=== PATIENT | male | born 1950 | race Caucasian/White ===

== ENCOUNTER 2016-03-24 13:41 | Emergency (ER) | payer BC ==
[~2016-03-24] VITALS: Ht 167.6 cm; Wt 75.0 kg
[~2016-03-24 13:41] MED LIST: ERYT.5%O LEFT EYE; TYLE3 PO; Z.0.NO CURRENT MEDS; ZOFR4TAB3 SL
[2016-03-24 13:46] VITALS: BP 184/115; PULSE 83; RESP 16; O2SAT 96
[2016-03-24 13:56] VITALS: BP 219/100; PULSE 53; RESP 18; O2SAT 99
--- NOTE | 2016-03-24 14:11 | PD ---
HPI Chief Complaint: Chest Pain Time Seen by Provider: 14:07 Travel History International Travel<30 days: No Contact w/Intl Traveler<30days: No Traveled to known affect area: No History of Present Illness HPI 66-year-old male presents to the emergency department for evaluation of left flank pain that started at 11:30 while working at [employer]. He states he was walking when the pain hit him. He denies any history of back pain. No fevers or chills. Denies any chest pain or shortness of breath. Patient reports no chronic medical problems and taking no prescribed medications. He states he has whitecoat syndrome and his blood pressure is always elevated when seeing the doctor. Patient denies any abdominal surgeries or previous history of abdominal problems. He denies a history of nephrolithiasis. Patient states he has vomited several times since 11:30. PFSH Past Surgical History Surgical History: No Previous Surgery Social History Alcohol Use: No Tobacco Use: No Substance Use: No Allergies-Medications (Allergen,Severity, Reaction): Coded Allergies: Medrol (Verified Allergy, Severe, INCREASED HEART RATE, 03/24/16) Reported Meds & Prescriptions Reported Meds & Active Scripts Active Ondansetron Odt 4 Mg Tab 4 Mg SL Q6HR PRN Review of Systems Except as stated in HPI: all other systems reviewed are Neg Physical Exam Narrative GENERAL: Well-developed well-nourished male patient, afebrile. SKIN: Warm and dry. HEAD: Normocephalic. Atraumatic. EYES: No scleral icterus. No injection or drainage. NECK: Supple, trachea midline. No JVD or lymphadenopathy. CARDIOVASCULAR: Regular rate and rhythm without murmurs, gallops, or rubs. RESPIRATORY: Breath sounds equal bilaterally. No accessory muscle use. Lungs sounds clear to auscultation. GASTROINTESTINAL: Abdomen soft, non-tender, nondistended. MUSCULOSKELETAL: No cyanosis, or edema. BACK: Nontender without obvious deformity. No CVA tenderness. No CVA tenderness to left flank, but patient states this is where his pain is and points to this location. Data Data Last Documented VS Vital Signs Date Time Temp Pulse Resp B/P Pulse Ox O2 Delivery O2 Flow Rate FiO2 03/24/16 14:24 96 03/24/16 13:56 53 18 219/100 Orders Electrocardiogram (03/24/16 ) Morphine Inj (Morphine Inj) (03/24/16 14:15) Ondansetron Inj (Zofran Inj) (03/24/16 14:15) Complete Blood Count With Diff (03/24/16 14:06) Comprehensive Metabolic Panel (03/24/16 14:06) Lipase (03/24/16 14:06) Urinalysis - C+S If Indicated (03/24/16 14:06) Ct Abd/Pel W/O Iv Contrast (03/24/16 14:06) Iv Access Insert/Monitor (03/24/16 14:06) Ecg Monitoring (03/24/16 14:06) Oximetry (03/24/16 14:06) Sodium Chloride 0.9% Flush (Ns Flush) (03/24/16 14:15) Ct Abd/Pel W Iv Contrast(Rout) (03/24/16 ) Chest, Single Ap (03/24/16 ) Creatine Kinase (Cpk) (03/24/16 15:31) Troponin I (03/24/16 15:31) Morphine Inj (Morphine Inj) (03/24/16 15:45) Iohexol 350 Inj (Omnipaque 350 Inj) (03/24/16 15:57) Ketorolac Inj (Toradol Inj) (03/24/16 17:00) Labs Laboratory Tests Test 03/24/16 03/24/16 14:17 16:25 White Blood Count 17.1 TH/MM3 Red Blood Count 5.27 MIL/MM3 Hemoglobin 15.3 GM/DL Hematocrit 45.3 % Mean Corpuscular Volume 86.0 FL Mean Corpuscular Hemoglobin 29.0 PG Mean Corpuscular Hemoglobin 33.7 % Concent Red Cell Distribution Width 13.8 % Platelet Count 279 TH/MM3 Mean Platelet Volume 8.8 FL Neutrophils (%) (Auto) 89.6 % Lymphocytes (%) (Auto) 6.8 % Monocytes (%) (Auto) 3.5 % Eosinophils (%) (Auto) 0.0 % Basophils (%) (Auto) 0.1 % Neutrophils # (Auto) 15.3 TH/MM3 Lymphocytes # (Auto) 1.2 TH/MM3 Monocytes # (Auto) 0.6 TH/MM3 Eosinophils # (Auto) 0.0 TH/MM3 Basophils # (Auto) 0.0 TH/MM3 CBC Comment DIFF FINAL Differential Comment Sodium Level 139 MEQ/L Potassium Level 4.0 MEQ/L Chloride Level 103 MEQ/L Carbon Dioxide Level 28.4 MEQ/L Anion Gap 8 MEQ/L Blood Urea Nitrogen 14 MG/DL Creatinine 1.10 MG/DL Estimat Glomerular Filtration 67 ML/MIN Rate Random Glucose 116 MG/DL Calcium Level 8.9 MG/DL Total Bilirubin 0.6 MG/DL Aspartate Amino Transf 27 U/L (AST/SGOT) Alanine Aminotransferase 34 U/L (ALT/SGPT) Alkaline Phosphatase 93 U/L Total Creatine Kinase 228 U/L Troponin I LESS THAN 0.02 NG/ML Total Protein 8.0 GM/DL Albumin 4.2 GM/DL Lipase 122 U/L Urine Color LIGHT-YELLOW Urine Turbidity CLEAR Urine pH 8.0 Urine Specific [place] 1.018 Urine Protein NEG mg/dL Urine Glucose (UA) NEG mg/dL Urine Ketones 10 mg/dL Urine Occult Blood SMALL Urine Nitrite NEG Urine Bilirubin NEG Urine Urobilinogen LESS THAN 2.0 MG/DL Urine Leukocyte Esterase NEG Urine RBC 7 /hpf Urine WBC 1 /hpf Microscopic Urinalysis Comment CULT NOT INDICATED MDM Medical Decision Making Medical Screen Exam Complete: Yes Emergency Medical Condition: Yes Medical Record Reviewed: Yes Interpretation(s) Last Impressions Abdomen/Pelvis CT 03/24/16 1406 Signed Impressions: Service Date/Time: March 14:34 - CONCLUSION: 1. No acute obstructive uropathy. 2. Heterogeneous liver which is nonspecific. Contrast-enhanced CT or MRI would be helpful for further evaluation of the heterogeneous appearing liver to differentiate between scattered fatty infiltration or underlying solid lesions. 3. Scattered hepatic cysts and bilateral renal cysts. 4. Cardiomegaly and coronary artery calcifications. 5. Degenerative changes and scoliosis of the lumbar spine. 6. Prominent left gonadal vein. Raulito Rogers MD Chest X-Ray 03/24/16 0000 Signed Impressions: Service Date/Time: March 16:09 - CONCLUSION: No acute disease. Devon Negro MD CT abdomen/pelvis with IV contrast - CONCLUSION: 1. Mild scattered areas of fatty infiltration within the liver. 2. Multiple hepatic and bilateral renal cysts. 3. Cardiomegaly. 4. No acute obstructive uropathy. 5. 10 mm nodule along the superior aspect of the spleen which is nonspecific but probably benign. Differential Diagnosis nephrolithiasis vs. diverticulitis vs. muscle spasm Narrative Course 66-year-old male presents to the emergency department for evaluation of left flank pain and vomiting that started 11:30 this morning. EKG shows sinus bradycardia, heart rate 52, no acute ST changes. CBC, CMP, lipase, UA, CT abdomen/pelvis without contrast is ordered and pending. Patient is given morphine 4 mg IV and Zofran 4 mg IV. CBC shows leukocytosis 17.1. CMP shows no acute abnormality. Lipase is 122. UA shows small occult blood, 7 RBCs, no evidence of acute infection. CT abdomen /pelvis without contrast shows heterogeneous liver which is nonspecific. Contrast-enhanced CT or MRI would be helpful for further evaluation of the heterogeneous appearing liver to differentiate between scattered fatty infiltration or underlying solid lesions. CT abdomen/pelvis with contrast is ordered and shows mild scattered areas of fatty infiltration within the liver; multiple hepatic and bilateral renal cysts; cardiomegaly; no acute obstructive uropathy; 10 mm nodule along the superior aspect of the spleen which is nonspecific but probably benign. . Upon re-evaluation, patient now points a little higher on his back, upper back where pain is as well as mild epigastric and bilateral upper quadrant pain. Chest x-ray is ordered and pending. CK and troponin are ordered. Chest x-ray shows no acute disease. CK is 228. Troponin is less than 0.02. I discussed the case with my attending physician, Dr. Ramirez, who is aware of symptoms and physical exam findings. Symptoms are most consistent with nephrolithiasis that is not showing up on CT. Patient will be discharged with a prescription for Lortab for pain and Zofran for nausea. He is to follow up with his primary care physician and urologist. He is agreeable to this plan. Diagnosis Primary Impression: Flank pain, acute Referrals: Primary Care Physician call for appointment Urologist call for appointment Patient Instructions: Flank Pain (ED), General Instructions Additional Instructions: Follow up with your primary care physician. Take Lortab as directed as needed for pain. Caution this can make you drowsy so do not drive after taking. Take Zofran as directed as needed for nausea/vomiting. Return to the emergency department for any acute, worsening of symptoms. Med/Other Pt SpecificInfo: Prescription(s) given Scripts Hydrocodone-Acetaminophen (Lortab)5-325 Mg Tab1 Tab PO Q6H PRN (PAIN) #20 TAB Ref 0 Prov:Levy Ramirez MD 03/24/16 Ondansetron Odt 4 Mg Tab4 Mg SL Q6HR PRN (Nausea/Vomiting) #16 TAB Ref 0 Prov:Bailey Robertson 03/24/16 Disposition: 01 DISCHARGE HOME Condition: Stable Bailey Robertson Mar 24, 2016 14:11
[2016-03-24] MEDS ORDERED: MORPHINE SULFATE 4 MG/ML INJ IV ONE ×2 (14:15→15:45)
[2016-03-24] MEDS ORDERED: ONDANSETRON HCL 4 MG/2 ML VIAL IVP ONE (14:15)
[2016-03-24] MEDS ORDERED: SODIUM CHLORIDE 0.9% FLUSH 5 ML FLUSH IVF PRN (14:15)
[2016-03-24 14:24] VITALS: O2SAT 96
[2016-03-24 14:30] LABS: AUTOMATED NEUTROPHIL # 15.3 TH/MM3 (1.8-7.7); BASOPHIL % 0.1 % (0.0-2.0); HEMATOCRIT 45.3 % (39.0-51.0); HEMO FLAGS DIFF FINAL; LYMPH % 6.8 % (9.0-44.0); LYMPHOCYTE # 1.2 TH/MM3 (1.0-4.8); MEAN CORPUSCULAR HGB CONC 33.7 % (32.0-36.0); MONO % 3.5 % (0.0-8.0); NEUT % 89.6 % (16.0-70.0); PLATELET COUNT 279 TH/MM3 (150-450); RED BLOOD COUNT 5.27 MIL/MM3 (4.50-5.90); RED CELL DISTRIBUTION WIDTH 13.8 % (11.6-17.2); WHITE BLOOD COUNT 17.1 TH/MM3 (4.0-11.0)
[2016-03-24 14:49] LABS: ALKALINE PHOSPHATASE 93 U/L (45-117); TOTAL BILIRUBIN ADULT 0.6 MG/DL (0.2-1.0)
[2016-03-24 14:53] LABS: ALT (GPT) 34 U/L (12-78); ANION GAP 8 MEQ/L (5-15); AST (GOT) 27 U/L (15-37); BICARBONATE 28.4 MEQ/L (21.0-32.0); BLOOD UREA NITROGEN 14 MG/DL (7-18); CHLORIDE 103 MEQ/L (98-107); GLOMERULAR FILTRATION RATE 67 ML/MIN (>89); SODIUM (NA) 139 MEQ/L (136-145)
--- NOTE | 2016-03-24 15:21 | RADRPT ---
EXAM DATE/TIME: 03/24/2016 14:34 [facility] COMPARISON: No previous studies available for comparison. INDICATIONS : Left flank pain, nausea and vomiting. ORAL CONTRAST: No oral contrast ingested. RADIATION DOSE: 15.03 CTDIvol (mGy) MEDICAL HISTORY : None SURGICAL HISTORY : None. ENCOUNTER: Initial ACUITY: 1 day PAIN SCALE: 6/10 LOCATION: Left flank TECHNIQUE: Volumetric scanning of the abdomen and pelvis was performed. Using automated exposure control and ad justment of the mA and/or kV according to patient size, radiation dose was kept as low as reasonably achievable to obtain optimal diagnostic quality images. FINDINGS: LOWER LUNGS: Cardiomegaly and coronary artery calcifications are noted. LIVER: The liver is somewhat heterogeneous in attenuation which is nonspecific. Contrast-enhanced CT or MRI would be helpful for further evaluation of the heterogeneous appearing liver to differentiate between scattered fatty infiltration or underlying solid lesions. There are scattered low density lesions wi thin the liver consistent with hepatic cysts. The largest cyst is noted anteriorly and measures 6.2 c m. No biliary ductal dilatation is noted. The gallbladder is unremarkable. SPLEEN: Normal size without lesion. PANCREAS: Within normal limits. KIDNEYS: Normal in size and shape. Small bilateral renal cysts are noted. There is no mass, stone, or hydrone phrosis. ADRENAL GLANDS: Within normal limits. VASCULAR: There is no aortic aneurysm. There is a prominent left gonadal vein. BOWEL/MESENTERY: The stomach, small bowel, and colon demonstrate no acute abnormality. There is no free intraperitone al air or fluid. ABDOMINAL WALL: Within normal limits. RETROPERITONEUM: There is no lymphadenopathy. BLADDER: No wall thickening or mass. REPRODUCTIVE: Within normal limits. INGUINAL: There is no lymphadenopathy or hernia. MUSCULOSKELETAL: Degenerative changes of scoliosis of the thoracolumbar spine are noted. CONCLUSION: 1. No acute obstructive uropathy. 2. Heterogeneous liver which is nonspecific. Contrast-enhanced CT or MRI would be helpful for further evaluation of the heterogeneous appearing liver to differentiate between scattered fatty infiltratio n or underlying solid lesions. 3. Scattered hepatic cysts and bilateral renal cysts. 4. Cardiomegaly and coronary artery calcifications. 5. Degenerative changes and scoliosis of the lumbar spine. 6. Prominent left gonadal vein. Raulito Rogers MD on March 24, 2016 at 15:12 Board Certified Radiologist. This report was verified electronically.
[2016-03-24] MEDS ORDERED: IOHEXOL 350 MG/ML 10 ML VIAL (for RAD DIAG) IV ONE (15:57)
--- NOTE | 2016-03-24 16:23 | RADRPT ---
EXAM DATE/TIME: 03/24/2016 16:09 [facility] COMPARISON: No previous studies available for comparison. INDICATIONS : Chest pain. MEDICAL HISTORY : None. SURGICAL HISTORY : None. ENCOUNTER: Initial ACUITY: 1 day PAIN SCORE: 5/10 LOCATION: Bilateral chest FINDINGS: A single view of the chest demonstrates the lungs to be symmetrically aerated without evidence of mas s, infiltrate or effusion. The cardiomediastinal contours are unremarkable. Osseous structures are intact. There are overlying electrocardiogram leads. CONCLUSION: No acute disease. Devon Negro MD on March 24, 2016 at 16:21 Board Certified Radiologist. This report was verified electronically.
--- NOTE | 2016-03-24 16:29 | RADRPT ---
EXAM DATE/TIME: 03/24/2016 15:50 [facility] COMPARISON: CT ABDOMEN & PELVIS W/O CONTRAST, March 24, 2016, 14:34. INDICATIONS : Abnormal abdominal/pelvis CT. Evaluate liver. IV CONTRAST: 92 cc Omnipaque 350 (iohexol) IV ORAL CONTRAST: No oral contrast ingested. RADIATION DOSE: 9.96 CTDIvol (mGy) MEDICAL HISTORY : None SURGICAL HISTORY : None. ENCOUNTER: Initial ACUITY: 1 day PAIN SCALE: 3/10 LOCATION: Left flank TECHNIQUE: Volumetric scanning of the abdomen and pelvis was performed. Using automated exposure control and ad justment of the mA and/or kV according to patient size, radiation dose was kept as low as reasonably achievable to obtain optimal diagnostic quality images. FINDINGS: The previously questioned heterogenous liver is confirmed as scattered areas of mild fatty infiltrati on rather than underlying solid mass lesions. Multiple simple hepatic cysts are also noted. No bili channing ductal dilatation is noted. The gallbladder is unremarkable. There is a tiny nodule arising from the superior aspect of the spleen measuring 10 mm which is nonspecific but likely benign. Scattered renal cysts are noted. There is no acute obstructive uropathy. The pancreas is normal. The adrena ls glands are normal bilaterally. A prominent left gonadal vein is noted. The urinary bladder is un remarkable. The prostate gland is normal. Cardiomegaly is again noted. Degenerative changes and sco liosis of the lumbar spine are noted. The urinary bladder is unremarkable. No ascites is noted. CONCLUSION: 1. Mild scattered areas of fatty infiltration within the liver. 2. Multiple hepatic and bilateral renal cysts. 3. Cardiomegaly. 4. No acute obstructive uropathy. 5. 10 mm nodule along the superior aspect of the spleen which is nonspecific but probably benign. Raulito Rogers MD on March 24, 2016 at 16:16 Board Certified Radiologist. This report was verified electronically.
[2016-03-24 16:38] LABS: BLOOD, URINE SMALL (NEG); COMMENT (UR) CULT NOT INDICATED; CULTURE IF INDICATED CULT NOT INDICATED; GLUCOSE,URINE NEG (NEG); KETONE, URINE 10 mg/dL (NEG); NITRITE,URINE NEG (NEG); URINE COLOR LIGHT-YELLOW (YELLW/STRAW)
[2016-03-24 16:44] LABS: CREATINE KINASE 228 U/L (39-308)
[2016-03-24 17:00] VITALS: BP 178/85; PULSE 66; RESP 18; O2SAT 98
[2016-03-24] MEDS ORDERED: KETOROLAC TROMETHAMINE 30 MG/ML (IVP) VIAL IV PUSH ONE (17:00)
[2016-03-24] MEDS ORDERED: ONDA4TAB7 SL (17:00)
[2016-03-24] MEDS ORDERED: HYDR-3533 PO (17:02)
--- NOTE | 2016-03-26 08:59 | EKG ---
Date Performed: 03/24/2016 Time Performed: 14:03:22 PTAGE: 66 years EKG: SINUS BRADYCARDIA LVH BY VOLTAGE ABNORMAL ECG NO PREVIOUS TRACING DOCTOR: Johnny Krause Interpretating Date/Time 03/26/2016 08:58:36
== END 2016-03-24 18:19 | disposition home or self-care (01) ==
LOC: NEPC 13:41
DX: R10.9 Unspecified abdominal pain (principal); R00.1 Bradycardia, unspecified
CPT/HCPCS: 71010; 74176; 74177; 80053; 81001; 82550; 83690; 84484; 85025; 93005; 96374; 96375; 96376; 99284; J1885; J2270; J2405; Q9967

== ENCOUNTER 2016-03-27 10:37 | Emergency (ER) | payer BC ==
[~2016-03-27] VITALS: Ht 162.6 cm; Wt 72.9 kg
[~2016-03-27 10:37] MED LIST changes: -ERYT.5%O LEFT EYE; +HYDR-3533 PO; +ONDA4TAB7 SL; -TYLE3 PO; -Z.0.NO CURRENT MEDS; -ZOFR4TAB3 SL
[2016-03-27 10:44] VITALS: BP 162/89; PULSE 104; RESP 16; TEMP 99.1; O2SAT 96
--- NOTE | 2016-03-27 11:41 | PD ---
HPI Chief Complaint: Abdominal Pain Time Seen by Provider: 11:18 Travel History International Travel<30 days: No Contact w/Intl Traveler<30days: No Traveled to known affect area: No History of Present Illness HPI 66yo M with no significant PMH presents to the ED with c/o abdominal pain for 2 days. Pt was seen at [place] 3 days ago for left flank pain and epigastric abdominal pain. Pt had negative work up with negative CT abd/pelvis. States that his back pain has resolved but now has an achy feeling in his abdomen that is generalized. States the achy pain is worst when he stands up and not there when he is lying down. Denies any fever, n/v, chest pain, sob, urinary complaint. Pt did take a laxative this morning and had bowel movement. PFSH Past Medical History GERD: Yes Past Surgical History Surgical History: No Previous Surgery Social History Alcohol Use: No Tobacco Use: No Substance Use: No Allergies-Medications (Allergen,Severity, Reaction): Coded Allergies: Medrol (Verified Allergy, Severe, INCREASED HEART RATE, 03/27/16) Reported Meds & Prescriptions Reported Meds & Active Scripts Active Lortab (Hydrocodone-Acetaminophen) 5-325 Mg Tab 1 Tab PO Q6H PRN Review of Systems Except as stated in HPI: all other systems reviewed are Neg Physical Exam Narrative GENERAL: 66yo M not in distress. SKIN: Warm and dry. HEAD: Atraumatic. Normocephalic. EYES: Pupils equal and round. No scleral icterus. No injection or drainage. ENT: No nasal bleeding or discharge. Mucous membranes pink and moist. NECK: Trachea midline. No JVD. CARDIOVASCULAR: Regular rate and rhythm. No murmur appreciated. RESPIRATORY: No accessory muscle use. Clear to auscultation. Breath sounds equal bilaterally. GASTROINTESTINAL: Abdomen soft, non-tender, nondistended. No rebound tenderness or guarding. BACK: No CVA tenderness bilaterally. : No penile or testicular ttp. No inguinal hernia palpated bilaterally. MUSCULOSKELETAL: No obvious deformities. No clubbing. No cyanosis. No edema. NEUROLOGICAL: Awake and alert. No obvious cranial nerve deficits. Motor grossly within normal limits. Normal speech. PSYCHIATRIC: Appropriate mood and affect; insight and judgment normal. Data Data Last Documented VS Vital Signs Date Time Temp Pulse Resp B/P Pulse Ox O2 Delivery O2 Flow Rate FiO2 03/27/16 13:59 88 18 123/67 98 03/27/16 10:44 99.1 Orders Complete Blood Count With Diff (03/27/16 11:32) Basic Metabolic Panel (Bmp) (03/27/16 11:32) Hepatic Functional Panel (03/27/16 11:32) Lipase (03/27/16 11:32) Urinalysis - C+S If Indicated (03/27/16 11:32) Abdomen, Upright Only (03/27/16 11:41) Al-Mag Hy-Si 40-40-4 Mg/Ml Liq (Mag-Al P (03/27/16 11:45) Lidocaine 2% Viscous (Xylocaine 2% Visco (03/27/16 11:45) Potassium Chloride (Kcl) (03/27/16 13:00) Ed Poc Ultrasound (03/27/16 ) Ed Poc Ultrasound (03/27/16 ) Labs Laboratory Tests Test 03/27/16 03/27/16 11:40 11:45 Urine Collection Type CLEAN CATCH Urine Color YELLOW Urine Turbidity CLEAR Urine pH 5.5 Urine Specific [place] 1.025 Urine Protein 100 mg/dL Urine Glucose (UA) NEG mg/dL Urine Ketones 15 mg/dL Urine Occult Blood LARGE Urine Nitrite NEG Urine Bilirubin NEG Urine Leukocyte Esterase NEG Urine RBC 20-24 /hpf Urine WBC 0-2 /hpf Urine Squamous Epithelial 0-5 /hpf Cells Microscopic Urinalysis Comment CULT NOT INDICATED Urine Collection Time 11:40 White Blood Count 12.9 TH/MM3 Red Blood Count 5.32 MIL/MM3 Hemoglobin 15.6 GM/DL Hematocrit 46.1 % Mean Corpuscular Volume 86.7 FL Mean Corpuscular Hemoglobin 29.3 PG Mean Corpuscular Hemoglobin 33.8 % Concent Red Cell Distribution Width 13.0 % Platelet Count 264 TH/MM3 Mean Platelet Volume 8.7 FL Neutrophils (%) (Auto) 81.9 % Lymphocytes (%) (Auto) 8.6 % Monocytes (%) (Auto) 6.5 % Eosinophils (%) (Auto) 0.2 % Basophils (%) (Auto) 2.8 % Neutrophils # (Auto) 10.6 TH/MM3 Lymphocytes # (Auto) 1.1 TH/MM3 Monocytes # (Auto) 0.8 TH/MM3 Eosinophils # (Auto) 0.0 TH/MM3 Basophils # (Auto) 0.4 TH/MM3 CBC Comment DIFF FINAL Differential Comment Sodium Level 141 MEQ/L Potassium Level 3.0 MEQ/L Chloride Level 101 MEQ/L Carbon Dioxide Level 30.2 MEQ/L Anion Gap 10 MEQ/L Blood Urea Nitrogen 19 MG/DL Creatinine 1.40 MG/DL Estimat Glomerular Filtration 50 ML/MIN Rate Random Glucose 131 MG/DL Calcium Level 8.9 MG/DL Total Bilirubin 1.6 MG/DL Direct Bilirubin 0.7 MG/DL Indirect Bilirubin 0.9 MG/DL Aspartate Amino Transf 47 U/L (AST/SGOT) Alanine Aminotransferase 65 U/L (ALT/SGPT) Alkaline Phosphatase 110 U/L Total Protein 7.6 GM/DL Albumin 3.3 GM/DL Lipase 159 U/L [facility] Medical Decision Making Medical Screen Exam Complete: Yes Emergency Medical Condition: Yes Interpretation(s) Last Impressions Abdomen X-Ray 03/27/16 1141 Signed Impressions: Service Date/Time: Sunday, March 27, 2016 12:22 - CONCLUSION: Benign Upright abdomen. Dawson Garcia MD Laboratory Tests Test 03/27/16 03/27/16 11:40 11:45 Urine Collection Type CLEAN CATCH Urine Color YELLOW (YELLW/STRAW) Urine Turbidity CLEAR (CLEAR) Urine pH 5.5 (5.0-8.5) Urine Specific [place] 1.025 (1.002-1.035) Urine Protein 100 mg/dL (NEG-TRACE) Urine Glucose (UA) NEG mg/dL (NEG) Urine Ketones 15 mg/dL (NEG) Urine Occult Blood LARGE (NEG) Urine Nitrite NEG (NEG) Urine Bilirubin NEG (NEG) Urine Leukocyte Esterase NEG (NEG) Urine RBC 20-24 /hpf (0-3) Urine WBC 0-2 /hpf (0-5) Urine Squamous Epithelial 0-5 /hpf (0-5) Cells Microscopic Urinalysis Comment CULT NOT INDICATED Urine Collection Time 11:40 White Blood Count 12.9 TH/MM3 (4.0-11.0) Red Blood Count 5.32 MIL/MM3 (4.50-5.90) Hemoglobin 15.6 GM/DL (13.0-17.0) Hematocrit 46.1 % (39.0-51.0) Mean Corpuscular Volume 86.7 FL (80.0-100.0) Mean Corpuscular Hemoglobin 29.3 PG (27.0-34.0) Mean Corpuscular Hemoglobin 33.8 % Concent (32.0-36.0) Red Cell Distribution Width 13.0 % (11.6-17.2) Platelet Count 264 TH/MM3 (150-450) Mean Platelet Volume 8.7 FL (7.0-11.0) Neutrophils (%) (Auto) 81.9 % (16.0-70.0) Lymphocytes (%) (Auto) 8.6 % (9.0-44.0) Monocytes (%) (Auto) 6.5 % (0.0-8.0) Eosinophils (%) (Auto) 0.2 % (0.0-4.0) Basophils (%) (Auto) 2.8 % (0.0-2.0) Neutrophils # (Auto) 10.6 TH/MM3 (1.8-7.7) Lymphocytes # (Auto) 1.1 TH/MM3 (1.0-4.8) Monocytes # (Auto) 0.8 TH/MM3 (0-0.9) Eosinophils # (Auto) 0.0 TH/MM3 (0-0.4) Basophils # (Auto) 0.4 TH/MM3 (0-0.2) CBC Comment DIFF FINAL Differential Comment Sodium Level 141 MEQ/L (136-145) Potassium Level 3.0 MEQ/L (3.5-5.1) Chloride Level 101 MEQ/L (98-107) Carbon Dioxide Level 30.2 MEQ/L (21.0-32.0) Anion Gap 10 MEQ/L (5-15) Blood Urea Nitrogen 19 MG/DL (7-18) Creatinine 1.40 MG/DL (0.60-1.30) Estimat Glomerular Filtration 50 ML/MIN (>89) Rate Random Glucose 131 MG/DL (74-106) Calcium Level 8.9 MG/DL (8.5-10.1) Total Bilirubin 1.6 MG/DL (0.2-1.0) Direct Bilirubin 0.7 MG/DL (0.0-0.2) Indirect Bilirubin 0.9 MG/DL (0.0-0.8) Aspartate Amino Transf 47 U/L (15-37) (AST/SGOT) Alanine Aminotransferase 65 U/L (12-78) (ALT/SGPT) Alkaline Phosphatase 110 U/L (45-117) Total Protein 7.6 GM/DL (6.4-8.2) Albumin 3.3 GM/DL (3.4-5.0) Lipase 159 U/L (73-393) Differential Diagnosis Constipation vs. UTI vs. musculoskeletal pain Narrative Course 66yo M with c/o abdominal pain. However, on my exam, pt did not have any tenderness to palpation. Labs reviewed, mild leukocytosis at 12.9 which is decreased from 17.1 on 03/24/16. K is low at 3.0, replaced orally with 60mEq KCl PO. Pt has not vomited for 3 days and stats he has not been eating well but denies any nausea or vomiting. BUN/creatinine mildly elevated. Pt is tolerating PO. LFT and bilirubin is mildly elevated. However, pt has no RUQ tenderness to palpation. I did bedside US and gallbladder wall is not thickened. No gallstones and no sonographic tomas sign. Will have pt follow up with PMD regarding this. UA showed large blood. No leukocyte. Xray abdomen is negative for any free intraperitoneal gas. There is stool in colon. Pt given GI cocktail which improved pain. Return precautions given. Procedures Procedure Narrative Emergency department right upper quadrant ultrasound was performed with patient consent. Curvilinear probe was used in the transverse and sagittal views within the right upper quadrant revealing gallbladder without obvious wall thickening, cholecystic fluid, or cholelithiasis. Emergency departmetn urinary tract ultrasound was performed with patient consent. Curvilinear probe was used in the transverse and sagittal views in the bilateral flank and suprapubic region without evidence of hydronephrosis and urinary retention. Diagnosis Primary Impression: Abdominal pain Qualified Code: R10.9 - Abdominal pain, unspecified location Patient Instructions: General Instructions Departure Forms: Tests/Procedures Additional Instructions: Please follow up with your PMD in 3-7 days. Return to the ED if symptoms worsen. Med/Other Pt SpecificInfo: Prescription(s) given, No Change to Meds Disposition: 01 DISCHARGE HOME Condition: Stable Ester Mcgarry Mar 27, 2016 11:41
[2016-03-27] MEDS ORDERED: LIDOCAINE VISCOUS 2% SOLN 15 ML UDC PO ONE (11:45)
[2016-03-27] MEDS ORDERED: ALUMINUM/MAGNESIUM/SIMETH 30 ML CUP PO ONE (11:45)
[2016-03-27 11:51] LABS: AUTOMATED NEUTROPHIL # 10.6 TH/MM3 (1.8-7.7); BASOPHIL # 0.4 TH/MM3 (0-0.2); BASOPHIL % 2.8 % (0.0-2.0); EOSINOPHIL % 0.2 % (0.0-4.0); HEMATOCRIT 46.1 % (39.0-51.0); HEMO FLAGS DIFF FINAL; LYMPH % 8.6 % (9.0-44.0); LYMPHOCYTE # 1.1 TH/MM3 (1.0-4.8); MEAN CELL VOLUME 86.7 FL (80.0-100.0); MEAN CORPUSCULAR HEMOGLOBIN 29.3 PG (27.0-34.0); MEAN CORPUSCULAR HGB CONC 33.8 % (32.0-36.0); MONO % 6.5 % (0.0-8.0); NEUT % 81.9 % (16.0-70.0); PLATELET COUNT 264 TH/MM3 (150-450); RED BLOOD COUNT 5.32 MIL/MM3 (4.50-5.90); WHITE BLOOD COUNT 12.9 TH/MM3 (4.0-11.0)
[2016-03-27 11:54] LABS: BLOOD, URINE LARGE (NEG); GLUCOSE,URINE NEG (NEG); KETONE, URINE 15 mg/dL (NEG); NITRITE,URINE NEG (NEG); PH, URINE 5.5 (5.0-8.5)
[2016-03-27 12:05] LABS: METHOD OF COLLECTION CLEAN CATCH; URINE COLOR YELLOW (YELLW/STRAW); WBC, URINE 0-2 /hpf (0-5)
[2016-03-27 12:06] LABS: COMMENT (UR) CULT NOT INDICATED; CULTURE IF INDICATED CULT NOT INDICATED; SQUAMOUS EPITHELIAL CELL URINE 0-5 /hpf (0-5)
[2016-03-27 12:27] LABS: BICARBONATE 30.2 MEQ/L (21.0-32.0); INDIRECT BILIRUBIN 0.9 MG/DL (0.0-0.8); TOTAL BILIRUBIN ADULT 1.6 MG/DL (0.2-1.0)
--- NOTE | 2016-03-27 12:41 | RADHPO ---
EXAM DATE/TIME: 03/27/2016 12:22 [facility] COMPARISON: No previous studies available for comparison. INDICATIONS : Abdomen pain MEDICAL HISTORY : None. SURGICAL HISTORY : Cholecystectomy. ENCOUNTER: Initial ACUITY: 3 days PAIN SCORE: 7/10 LOCATION: Bilateral abdomen FINDINGS: A single erect view of the abdomen demonstrates the lower lungs to be clear. No evidence of free int raperitoneal gas. The visualized bowel loops are unremarkable. There is stool in the colon. There ar e degenerative changes of the lumbar spine. CONCLUSION: Benign Upright abdomen. Dawson Garcia MD on March 27, 2016 at 12:39 Board Certified Radiologist. This report was verified electronically.
[2016-03-27] MEDS ORDERED: POTASSIUM CHLORIDE 20 MEQ CONTROLLED RELEASE TAB PO ONE (13:00)
[2016-03-27 13:59] VITALS: BP 123/67
== END 2016-03-27 14:03 | disposition home or self-care (01) ==
LOC: PHED 10:37
DX: R10.9 Unspecified abdominal pain (principal); K21.9 Gastro-esophageal reflux disease without esophagitis
CPT/HCPCS: 74000; 80048; 80076; 81001; 83690; 85025; 99284